=== PATIENT | male | born 1945 | race African-American/Black ===

== ENCOUNTER 2016-07-02 17:19 | Emergency (ER) | payer MEDICARE, OTHER, MEDICAID ==
[~2016-07-02] VITALS: Ht 175.3 cm; Wt 75.0 kg
[~2016-07-02 17:19] MED LIST: AMLO10TA4 GT; ASPI325T2 GT; ATOR10TA GT; ENAL10TA GT; FAMO-134 GT; GABA-531 PO; MIRT15TA GT; NITR0.4T3 TOP; POTA10TA15 GT; QUET25TA GT; TAMS-11 GT
[2016-07-02] MEDS ORDERED: ACETAMINOPHEN 650MG/20.3ML UDC PO ONE (20:15)
[2016-07-03 11:30] VITALS: BP 139/81
== END 2016-07-03 11:49 | disposition home or self-care (01) ==
LOC: ER 18:00
DX: K94.23 Gastrostomy malfunction (principal); E78.00 Pure hypercholesterolemia, unspecified; F03.90 Unspecified dementia, unspecified severity, without behavioral disturbance, psychotic disturbance, mood disturbance, and anxiety; F32.9 Major depressive disorder, single episode, unspecified; I50.9 Heart failure, unspecified; J44.9 Chronic obstructive pulmonary disease, unspecified; K21.9 Gastro-esophageal reflux disease without esophagitis; Z79.82 Long term (current) use of aspirin; Z86.73 Personal history of transient ischemic attack (TIA), and cerebral infarction without residual deficits
CPT/HCPCS: 99283; 99284

== ENCOUNTER 2018-05-15 12:25 | Inpatient (IN) | payer MEDICARE, MEDICAID ==
[~2018-05-15] VITALS: Ht 180.3 cm; Wt 89.8 kg
[~2018-05-15 12:25] MED LIST changes: +ASPI-986 GT; -ASPI325T2 GT; -NITR0.4T3 TOP; +NITR0.4T49 TOP
[2018-05-15 13:18] LABS: BASOPHILS % 0.9 % (0.0-2.0); EOSINOPHILS % 0.6 % (0.0-5.0); HEMATOCRIT. 45.6 % (42.0-52.0); HEMOGLOBIN. 15.9 g/dL (14.0-18.0); MEAN CORPUSCULAR HEMOGLOBIN 29.2 pg (28.0-32.0); MEAN CORPUSCULAR VOLUME 84.1 fL (80.0-94.0); MEAN PLATELET VOLUME 9.1 fl (7.4-10.4); MONOCYTES % 8.9 % (2.0-8.0); NEUTROPHILS % 72.6 % (40.0-76.0); PLATELET 234 x1000/uL (130-400); RED BLOOD CELL COUNT 5.42 mill/uL (4.7-6.1); RED CELL DISTRIBUTION WIDTH 14.1 % (11.6-14.6)
[2018-05-15 13:21] LABS: CHLORIDE 106 mEq/L (98-107)
[2018-05-15 13:31] LABS: INR 1.1; PROTHROMBIN TIME 10.7 sec (9.1-11.1)
[2018-05-15] MEDS: DEXT 5%/LACTATED RINGERS 1,000 ML IV SCH (17:25)
[2018-05-15] MEDS ORDERED: KETOROLAC 15MG/ML VIAL IV PRN (17:30)
[2018-05-15] MEDS ORDERED: NITROGLYCERIN 0.4MG TABLET SL SL PRN (17:30)
[2018-05-15] MEDS ORDERED: ACETAMINOPHEN 650MG SUPP PR PRN (17:30)
[2018-05-15] MEDS ORDERED: NA PHOS,M-B/NA PHOS,DI-BA ENEMA 118ML PR PRN (17:30)
[2018-05-15] MEDS ORDERED: LORAZEPAM 2MG/ML CPJ IV PRN (17:30)
[2018-05-15] MEDS ORDERED: IPRATROPIUM/ALBUTEROL 0.5-3(2.5)MG/3ML NEB INH PRN (17:30)
[2018-05-15] MEDS ORDERED: HYDRALAZINE 20MG/ML VIAL IV PRN (17:30)
[2018-05-15] MEDS ORDERED: ONDANSETRON HCL 4MG/2ML INJ IV PRN (17:30)
[2018-05-15 20:00] VITALS: BP 139/79
[2018-05-15 20:16] VITALS: BP 152/103
[2018-05-15] MEDS: ENOXAPARIN 40MG/0.4ML SYR SUBCUT SCH (20:18)
[2018-05-15] MEDS: PIPERACILLIN/TAZ 3.375G PREMIX 50 ML IV SCH (20:18)
[2018-05-15] MEDS ORDERED: VANCOMYCIN 1500MG in DEXTROSE 5% WATER 250ML IV NR (22:00)
[2018-05-16] VITALS: BP 149/85
[2018-05-16] MEDS: PIPERACILLIN/TAZ 3.375G PREMIX 50 ML IV SCH ×3 (03:33→19:44)
[2018-05-16 04:00] VITALS: BP 149/85
[2018-05-16] MEDS: DEXT 5%/LACTATED RINGERS 1,000 ML IV SCH (06:21)
[2018-05-16 08:00] VITALS: BP 138/75
[2018-05-16] MEDS: PANTOPRAZOLE SODIUM 40 MG/VIAL IV SCH (09:26)
[2018-05-16] MEDS: VANCOMYCIN 1 G PREMIX 200 ML IV SCH ×2 (09:26→21:16)
[2018-05-16 12:00] VITALS: BP 144/86
[2018-05-16] MEDS ORDERED: NA PHOS,M-B/NA PHOS,DI-BA ENEMA 118ML PR NR (13:20)
[2018-05-16 16:00] VITALS: BP 159/83
[2018-05-16 20:00] VITALS: BP 126/81
[2018-05-16] MEDS: ENOXAPARIN 40MG/0.4ML SYR SUBCUT SCH (20:13)
[2018-05-17] VITALS: BP 143/72
[2018-05-17] MEDS: PIPERACILLIN/TAZ 3.375G PREMIX 50 ML IV SCH ×3 (03:30→20:51)
[2018-05-17 04:00] VITALS: BP 145/80
[2018-05-17 06:40] LABS: BASOPHILS % 0.8 % (0.0-2.0); EOSINOPHILS % 3.2 % (0.0-5.0); HEMATOCRIT. 39.3 % (42.0-52.0); HEMOGLOBIN. 14.1 g/dL (14.0-18.0); LYMPHOCYTES % 12.1 % (20.0-50.0); MEAN CORPUSCULAR VOLUME 83.8 fL (80.0-94.0); MEAN PLATELET VOLUME 9.1 fl (7.4-10.4); MONOCYTES % 11.4 % (2.0-8.0); NEUTROPHILS % 72.5 % (40.0-76.0); PLATELET 211 x1000/uL (130-400); RED BLOOD CELL COUNT 4.69 mill/uL (4.7-6.1); RED CELL DISTRIBUTION WIDTH 13.9 % (11.6-14.6)
[2018-05-17 07:02] LABS: CHLORIDE 110 mEq/L (98-107)
[2018-05-17 08:00] VITALS: BP 144/88
[2018-05-17] MEDS: PANTOPRAZOLE SODIUM 40 MG/VIAL IV SCH (08:58)
[2018-05-17] MEDS: DEXT 5%/LACTATED RINGERS 1,000 ML IV SCH ×2 (08:59→23:38)
[2018-05-17] MEDS: VANCOMYCIN 1 G PREMIX 200 ML IV SCH (09:01)
[2018-05-17 12:00] VITALS: BP 136/72
[2018-05-17 16:00] VITALS: BP 120/56
[2018-05-17 20:00] VITALS: BP 158/68
[2018-05-17] MEDS: ENOXAPARIN 40MG/0.4ML SYR SUBCUT SCH (20:50)
[2018-05-18] VITALS: BP 148/72
[2018-05-18] MEDS: VANCOMYCIN 1 G PREMIX 200 ML IV SCH ×2 (00:04→17:34)
[2018-05-18] MEDS: PIPERACILLIN/TAZ 3.375G PREMIX 50 ML IV SCH ×3 (03:36→19:47)
[2018-05-18 04:00] VITALS: BP 137/75
[2018-05-18 08:00] VITALS: BP 137/81
[2018-05-18] MEDS: PANTOPRAZOLE SODIUM 40 MG/VIAL IV SCH (08:49)
[2018-05-18] MEDS: DEXT 5%/LACTATED RINGERS 1,000 ML IV SCH (11:14)
[2018-05-18 12:00] VITALS: BP 152/80
[2018-05-18 16:00] VITALS: BP 150/79
[2018-05-18] MEDS ORDERED: CEFAZOLIN 1000MG PREMIX 50 ML IV SCH (16:30)
[2018-05-18 20:00] VITALS: BP 160/86
[2018-05-18] MEDS: ENOXAPARIN 40MG/0.4ML SYR SUBCUT SCH (21:53)
[2018-05-19] VITALS: BP 117/70
[2018-05-19] MEDS: PIPERACILLIN/TAZ 3.375G PREMIX 50 ML IV SCH ×3 (03:04→22:03)
[2018-05-19 04:00] VITALS: BP 167/78
[2018-05-19 08:00] VITALS: BP 164/89
[2018-05-19] MEDS: HYDRALAZINE 10 MG in SODIUM CHLORIDE 0.9% 49.5 ML IV PRN ×2 (08:11→14:11)
[2018-05-19] MEDS: PANTOPRAZOLE SODIUM 40 MG/VIAL IV SCH (08:11)
[2018-05-19] MEDS: VANCOMYCIN 1 G PREMIX 200 ML IV SCH (11:10)
[2018-05-19 11:50] VITALS: BP 182/84
[2018-05-19] MEDS: DEXT 5%/LACTATED RINGERS 1,000 ML IV SCH (13:05)
[2018-05-19] MEDS ORDERED: SODIUM CHLORIDE 0.9% 10ML VIAL ONE (15:39)
[2018-05-19] MEDS ORDERED: SIMETHICONE 40 MG/0.6 ML 30ML ONE (15:44)
[2018-05-19] MEDS ORDERED: MIDAZOLAM HCL 5 MG/5 ML VIAL IV PRN (16:06)
[2018-05-19] MEDS ORDERED: FENTANYL CITRATE/PF 50MCG/ML 2ML VIAL IV PRN (16:07)
[2018-05-19] MEDS ORDERED: MIDAZOLAM HCL 5 MG/5 ML VIAL ONE (16:13)
[2018-05-19] MEDS ORDERED: FENTANYL CITRATE/PF 50MCG/ML 2ML VIAL ONE (16:13)
[2018-05-19 20:00] VITALS: BP 151/79
[2018-05-19] MEDS: ENOXAPARIN 40MG/0.4ML SYR SUBCUT SCH (22:03)
[2018-05-20] VITALS: BP 150/79
[2018-05-20 04:00] VITALS: BP 155/85
[2018-05-20] MEDS: PIPERACILLIN/TAZ 3.375G PREMIX 50 ML IV SCH ×2 (04:52→11:26)
[2018-05-20] MEDS: DEXT 5%/LACTATED RINGERS 1,000 ML IV SCH ×2 (04:52→08:27)
[2018-05-20] MEDS: VANCOMYCIN 1 G PREMIX 200 ML IV SCH (05:04)
[2018-05-20 08:00] VITALS: BP 145/71
[2018-05-20] MEDS: PANTOPRAZOLE SODIUM 40 MG/VIAL IV SCH (08:27)
[2018-05-20 11:03] VITALS: BP 145/71
[2018-05-20 12:00] VITALS: BP 151/86
== END 2018-05-20 14:20 | DRG 393 ==
LOC: ER 12:25 → 6EST 16:19 → EDBEDREQ 16:22 → ENRESERV 17:46 → SUPCPDRO 19:09
PROVIDERS: ADMIT Internal Medicine; ATTEND Internal Medicine
PROC: 0DH63UZ Insertion of Feeding Device into Stomach, Percutaneous Approach (ICD-10-PCS; principal; 2018-05-19)
DX: K94.23 Gastrostomy malfunction (principal); G92 Toxic encephalopathy; E43 Unspecified severe protein-calorie malnutrition; F03.90 Unspecified dementia, unspecified severity, without behavioral disturbance, psychotic disturbance, mood disturbance, and anxiety; J44.9 Chronic obstructive pulmonary disease, unspecified; I11.0 Hypertensive heart disease with heart failure; I50.9 Heart failure, unspecified; K94.22 Gastrostomy infection; Y82.8 Other medical devices associated with adverse incidents; R13.12 Dysphagia, oropharyngeal phase; F32.9 Major depressive disorder, single episode, unspecified; Z79.82 Long term (current) use of aspirin; Z79.899 Other long term (current) drug therapy; Z68.27 Body mass index [BMI] 27.0-27.9, adult; Z86.73 Personal history of transient ischemic attack (TIA), and cerebral infarction without residual deficits; Y92.89 Other specified places as the place of occurrence of the external cause
CPT/HCPCS: 36415; 71045; 74018; 74176; 76705; 80048; 80202; 83036; 83880; 84484; 93970; 99285; C1893; C9113; J0360; J0690; J1650; J2250; J2543; J3010; J3370; J7060; J7620

== ENCOUNTER 2019-06-21 15:42 | Emergency (ER) | payer MEDICARE, MEDICAID ==
[~2019-06-21] VITALS: Ht 180.3 cm; Wt 80.0 kg
[2019-06-21] MEDS ORDERED: DIATR MEGLU/DIATRIZOATE SOLN 30ML ONE (17:37)
[2019-06-21 18:15] VITALS: BP 126/55
== END 2019-06-21 19:47 | disposition home or self-care (01) ==
LOC: ER 15:42
DX: K94.23 Gastrostomy malfunction (principal); I11.0 Hypertensive heart disease with heart failure; I50.9 Heart failure, unspecified; J44.9 Chronic obstructive pulmonary disease, unspecified; F03.90 Unspecified dementia, unspecified severity, without behavioral disturbance, psychotic disturbance, mood disturbance, and anxiety; F32.9 Major depressive disorder, single episode, unspecified; Z86.73 Personal history of transient ischemic attack (TIA), and cerebral infarction without residual deficits; Z79.82 Long term (current) use of aspirin; Z79.899 Other long term (current) drug therapy
CPT/HCPCS: 43762; 74018; 93970; 99284; Q9963

== ENCOUNTER 2020-04-08 09:01 | Emergency (ER) | payer MEDICARE, MEDICAID ==
[~2020-04-08] VITALS: Ht 177.8 cm; Wt 70.0 kg
[~2020-04-08 09:01] MED LIST changes: -ENAL10TA GT; +ENAL10TA19 GT; -GABA-531 PO; +GABA-532 PO; +MIRT-118 GT; -MIRT15TA GT
[2020-04-08] MEDS: SODIUM CHLORIDE 0.9% 1000ML BAG (SEPSIS BOLUS) IV ONE (09:13)
[2020-04-08] MEDS: ETOMIDATE 2MG/ML 10ML VIAL IV ONE (09:15)
[2020-04-08] MEDS: SUCCINYLCHOLINE CHLORIDE 200MG/10ML IV ONE (09:16)
[2020-04-08] MEDS: PROPOFOL 10MG/ML 100ML 100 ML IV ONE (09:22)
[2020-04-08] MEDS: SODIUM CHLORIDE 0.9% 1,000 ML IV ONE (09:30)
[2020-04-08] MEDS: PIPERACILLIN/TAZ 3.375G PREMIX 50 ML IV ONE (09:30)
[2020-04-08 09:38] VITALS: BP 0/0
[2020-04-08] MEDS: CEFTRIAXONE SODIUM 1 G/VIAL IM ONE (09:45)
[2020-04-08] MEDS: HEPARIN 5000 UNITS/ML VIAL IV ONE (09:50)
[2020-04-08] MEDS: NOREPINEPHRINE 8 MG in DEXT 5% WATER 242 ML IV STA (10:03)
[2020-04-08] MEDS ORDERED: SODIUM BICARBONATE 4% (2.4MEQ) 5ML VIAL IV ONE (10:07)
[2020-04-08] MEDS ORDERED: LIDOCAINE HCL 1% 20ML VIAL (Pyxis) INJ ONE (10:07)
[2020-04-08] MEDS ORDERED: NOREPINEPHRINE 8MG/250ML PMX 250 ML IV PRN (10:15)
[2020-04-08] MEDS ORDERED: NOREPINEPHRINE 8 MG in DEXT 5% WATER 242 ML IV PRN ×4 (10:15)
[2020-04-08 10:21] LABS: BASOPHILS % 0.4 % (0.0-2.0); EOSINOPHILS % 0.4 % (0.0-5.0); HEMATOCRIT. 46.8 % (42.0-52.0); HEMOGLOBIN. 15.4 g/dL (14.0-18.0); LYMPHOCYTES % 11.5 % (20.0-50.0); MEAN CORPUSCULAR HEMOGLOBIN 29.5 pg (28.0-32.0); MEAN CORPUSCULAR VOLUME 89.4 fL (80.0-94.0); MONOCYTES % 4.2 % (2.0-8.0); NEUTROPHILS % 83.5 % (40.0-76.0); PLATELET 214 x1000/uL (130-400); RED BLOOD CELL COUNT 5.23 mill/uL (4.7-6.1); RED CELL DISTRIBUTION WIDTH 18.9 % (11.6-14.6)
[2020-04-08 10:25] LABS: CHLORIDE 128 mEq/L (98-107)
[2020-04-08 10:27] LABS: PROTHROMBIN TIME 10.4 sec (9.6-11.0)
[2020-04-08 10:30] LABS: ETHANOL BLOOD < 10 mg/dL
[2020-04-08] MEDS ORDERED: VECURONIUM BROMIDE 10 MG/VIAL IV ONE (11:00)
[2020-04-08] MEDS ORDERED: SODIUM BICARBONATE 8.4% 1 MEQ/ML 50ML SYR IV ONE (11:00)
[2020-04-08] MEDS ORDERED: AMIODARONE HCL 50MG/ML 3ML VIAL IV ONE (11:00)
[2020-04-08] MEDS ORDERED: DEXTROSE 50% WATER 50ML SYRINGE IV ONE (11:00)
[2020-04-08] MEDS ORDERED: EPINEPHRINE 0.1MG/ML (1:10,000) 10ML SYR ONE (11:00)
[2020-04-08] MEDS ORDERED: ATROPINE SULFATE 1MG/10ML SYR ONE (11:00)
[2020-04-08] MEDS ORDERED: CALCIUM CHLORIDE 1GM/10ML SYR IV ONE (11:00)
[2020-04-08] MEDS ORDERED: SODIUM CHLORIDE 0.9% 10ML VIAL ONE (11:00)
== END 2020-04-08 14:08 | disposition expired ==
LOC: ER 09:19 → EDBEDREQ 10:19 → ER 14:08 → CANBEDREQ 14:44
DX: I46.9 Cardiac arrest, cause unspecified (principal); J96.00 Acute respiratory failure, unspecified whether with hypoxia or hypercapnia; E87.8 Other disorders of electrolyte and fluid balance, not elsewhere classified; N17.9 Acute kidney failure, unspecified; I11.0 Hypertensive heart disease with heart failure; I50.9 Heart failure, unspecified; F03.90 Unspecified dementia, unspecified severity, without behavioral disturbance, psychotic disturbance, mood disturbance, and anxiety; E78.00 Pure hypercholesterolemia, unspecified; K21.9 Gastro-esophageal reflux disease without esophagitis; Z86.73 Personal history of transient ischemic attack (TIA), and cerebral infarction without residual deficits; Z93.1 Gastrostomy status; Z79.899 Other long term (current) drug therapy
CPT/HCPCS: 31500; 36415; 36556; 76705; 80053; 80320; 82962; 83605; 83880; 84145; 84484; 85025; 85610; 86850; 86900; 86901; 87040; 92950; 93005; 96365; 96372; 96375; 99291; J0282; J0330; J0461; J0696; J2704; J3490; J7030; 94002; J7060; G0480